=== PATIENT | male | born 1965 | race Hispanic/Latino ===

== ENCOUNTER 2022-02-17 11:02 | Emergency (ER) | payer OTHER ==
[~2022-02-17] VITALS: Ht 170.2 cm; Wt 113.4 kg
[2022-02-17] MEDS ORDERED: 0.9%NACL 1000ML 1,000 ML IV ONE (11:30)
[2022-02-17] MEDS ORDERED: FAMOTIDINE 20MG VIAL IV ONE (11:30)
[2022-02-17] MEDS ORDERED: ONDANSETRON 4MG INJ IVP ONE (11:30)
[2022-02-17] MEDS ORDERED: MECLIZINE HCL 25 MG TABLET PO ONE (11:30)
[2022-02-17 11:38] LABS: BASOPHILS % (AUTO) 0.4 % (0.0-5.0); EOSINOPHILS % (AUTO) 1.3 % (0.0-8.0); HEMATOCRIT 47.3 % (42-54); LYMPHOCYTES % (AUTO) 26.7 % (21.0-51.0); MEAN CORPUSCULAR HGB CONC 33.2 g/dL (32.0-36.0); MEAN CORPUSCULAR VOLUME 87.4 fL (79-99); NEUTROPHILS % (AUTO) 64.5 % (40.0-77.0); PLATELET COUNT (AUTO) 245 K/uL (130-400); RED BLOOD CELL COUNT(AUTO) 5.41 MIL/uL (4.50-6.20); RED CELL DISTRIBUTION WIDTH 13.1 % (11.0-15.5); WHITE BLOOD COUNT (AUTO) 7.2 K/uL (4.8-10.8)
[2022-02-17 11:53] LABS: TOTAL PROTEIN, SERUM 8.3 g/dL (6.0-8.3)
[2022-02-17 14:18] LABS: APPEARANCE,URINE CLEAR (CLEAR); BILIRUBIN,URINE NEGATIVE (NEGATIVE); COLOR,URINE LIGHT-YELLOW (YELLOW); GLUCOSE, URINE (UA) NEGATIVE (NEGATIVE); KETONES,URINE NEGATIVE (NEGATIVE); LEUKOCYTE ESTERASE ,URINE NEGATIVE Leu/uL (NEGATIVE); NITRATE,URINE NEGATIVE (NEGATIVE); OCCULT BLOOD,URINE NEGATIVE (NEGATIVE); PROTEIN,URINE NEGATIVE (NEGATIVE); UROBILINOGEN,URINE 0.2 mg/dL (0.2-1.0)
[2022-02-17 14:24] LABS: AMPHET/METH SCREEN,URINE NEGATIVE (NEGATIVE); BARBITURATE SCREEN, URINE NEGATIVE (NEGATIVE); BENZODIAZEPINES SCREEN,URINE NEGATIVE (NEGATIVE); CANNABINOID SCREEN,URINE NEGATIVE (NEGATIVE); COCAINE SCREEN,URINE NEGATIVE (NEGATIVE); OPIATE SCREEN,URINE NEGATIVE (NEGATIVE); PHENCYCLIDINE SCREEN,URINE NEGATIVE (NEGATIVE)
[2022-02-17] MEDS ORDERED: AMOX1TAB16 PO (14:35)
[2022-02-17] MEDS ORDERED: ONDA4TAB10 PO (14:35)
[2022-02-17] MEDS ORDERED: MECL-226 PO (14:35)
[2022-02-17 14:41] VITALS: BP 132/78
== END 2022-02-17 14:56 | disposition home or self-care (01) ==
LOC: EDH 11:02
DX: H70.92 Unspecified mastoiditis, left ear (principal); R42 Dizziness and giddiness; E78.00 Pure hypercholesterolemia, unspecified; I10 Essential (primary) hypertension; Z20.822 Contact with and (suspected) exposure to COVID-19
CPT/HCPCS: 99285; 96374; 70450; 71045; 87635; 96361; 96375; 84484; 80053; 80305; 85025; 87804 ×2; 36415; 93005; 81003; C9803; J3490; J7030; J2405

== ENCOUNTER 2024-11-30 23:01 | Emergency (ER) | payer OTHER ==
[~2024-11-30] VITALS: Ht 167.6 cm; Wt 117.9 kg
[~2024-11-30 23:01] MED LIST: AMOX1TAB16 PO; MECL-226 PO; ONDA-243 PO
--- NOTE | 2024-11-30 23:38 | NUR ---
PT REMINDED THAT URINE SAMPLE IS NEEDED.
[2024-11-30 23:46] LABS: IMMATURE GRANULOCYTE ABSOLUTE 0.02 K/uL (0-1); NUCLEATED RED BLOOD CELLS 0.0 % (0.0-0.19); PLATELET COUNT (AUTO) 227 K/uL (130-400); RED BLOOD CELL COUNT(AUTO) 4.77 MIL/uL (4.50-6.20); RED CELL DISTRIBUTION WIDTH 13.0 % (11.0-15.5); WHITE BLOOD COUNT (AUTO) 7.1 K/uL (4.8-10.8)
[2024-11-30 23:53] LABS: CREATININE 1.0 mg/dL (0.5-1.3); GLOMERULAR FILTR. RATE CALC 87.0 mL/min (>90); GLUCOSE,RANDOM 134.0 mg/dL (70-105); SODIUM SERUM 142.0 mmol/L (136-145); UREA NITROGEN, BLOOD 22.0 mg/dL (7-18)
--- NOTE | 2024-12-01 01:18 | ERN ---
General Chief Complaint: Back Pain-No Injury Stated Complaint: C/O LOWER BACK PAIN TO LEFT SIDE Time Seen by MD: 23:10 Time Seen by Midlevel: 23:10 Source: patient History of Present Illness Initial Comments 51-year-old male with a past medical history of hyperlipidemia, hypertension, and kidney stones presents to the emergency department for evaluation of left lower back pain that started earlier today. Pain worsens with certain movements. The patient is unsure if this is musculoskeletal in nature or if he is having another kidney stone. Denies any dysuria, hematuria, fever, or any other symptoms at this time. Allergies: Coded Allergies: No Known Allergies (Unverified Allergy, Unknown, 02/17/22) Home Meds Active Scripts Meclizine HCl (Meclizine HCl) 12.5 Mg Tablet, 25 MG PO TID PRN for DIZZINESS, #10 TAB [facility] 02/17/22 Ondansetron (Ondansetron Odt) 4 Mg Tab.rapdis, 4 MG PO TID PRN for NAUSEA/VOMITING, #10 TAB Prov:[facility] 02/17/22 Amoxicillin/Potassium Clav (Amox Tr-K Clv 875-125 mg Tab) 1 Each Tablet, 1 EACH PO BID, #14 TAB Prov:[facility] 02/17/22 Past Medical History Past Medical History: High Cholesterol, Hypertension, Kidney Stone Past Surgical History: None ROS Dictation CONSTITUTIONAL: Negative except for HPI HEAD/FACE: Negative except for HPI EENT: Negative except for HPI RESPIRATORY: Negative except for HPI GASTROINTESTINAL/ABDOMINAL: Negative except for HPI GENITOURINARY: Negative except for HPI MUSCULOSKELETAL: Negative except for HPI INTEGUMENTARY: Negative except for HPI NEUROLOGICAL/PSYCH: Negative except for HPI HEMATOLOGIC/LYMPHATIC: Negative except for HPI All Systems Negative, Except as noted above. 13 point review of systems assessed and all negative except for above. Physical Exam Physical Exam Dictation Vital Signs reviewed General Appearance: Alert, oriented x 3, no acute distress, well developed, nourished. Head and Face: non-traumatic. Eyes: PERRL, pink conjunctivas, eyelid no trauma, anterior chamber with arcus senilis. Ears: Pinnas intact and no signs of trauma or erythema ear canals clear and no discharge TM no erythema Nose: No discharge, no bleeding. Oropharynx: Mouth normal, tongue pink, pharynx clear,no erythema, tonsils no exudates, no abscesses noted, mucous membrane moist Neck: Supple, non-tender, no thyromegaly, no masses, no JVD, no bruits Breast:Deferred Chest:No tenderness, no crepitus, no paradoxical movement, no retractions Lungs:Clear, well-ventilated, symmetric, no rales, no wheezing, no rhonchi, no stridor, good breath sounds bilaterally Heart: Regular rate, regular rhythm, no murmur, no gallops Vascular: no peripheral edema, Abdomen: Soft, positive bowel sounds, nondistended, no guarding, nontender, no rebound, no masses no hepatomegaly, no splenomegaly, no Farr's sign, no hernias. Rectal: Deferred Genital: Deferred Neurological: Normal speech, motor function intact, sensory function intact Musculoskeletal: Neck nontender, full range of motion, b paraspinal muscle tenderness to the left lumbar region, full range of motion, Extremities: nontender, full range of motion Skin: Color pink, dry, no turgor, no rash, no lacerations, no abrasions, no contusions. Lymphatic: Deferred Results Laboratory and Microbiology Lab and Micro Result Laboratory Tests Test 11/30/24 23:32 White Blood Count 7.1 K/uL (4.8-10.8) Red Blood Count 4.77 MIL/uL (4.50-6.20) Hemoglobin 14.5 g/dL (14.0-18.0) Hematocrit 43.3 % (42-54) Mean Corpuscular Volume 90.8 fL (79-99) Mean Corpuscular Hemoglobin 30.4 pg (27.0-33.0) Mean Corpuscular Hemoglobin Concent 33.5 g/dL (32.0-36.0) Red Cell Distribution Width 13.0 % (11.0-15.5) Platelet Count 227 K/uL (130-400) Mean Platelet Volume 9.7 fL (7.5-10.5) Immature Granulocyte % (Auto) 0.3 % (0-1) Neutrophils (%) (Auto) 54.5 % (40.0-77.0) Lymphocytes (%) (Auto) 28.6 % (21.0-51.0) Monocytes (%) (Auto) 10.7 % (3.0-13.0) Eosinophils (%) (Auto) 5.2 % (0.0-8.0) Basophils (%) (Auto) 0.7 % (0.0-5.0) Neutrophils # (Auto) 3.9 K/uL (1.8-7.7) Lymphocytes # (Auto) 2.0 K/uL (1.0-4.8) Monocytes # (Auto) 0.8 K/uL (0.1-1.0) Eosinophils # (Auto) 0.37 K/uL (0.00-0.70) Basophils # (Auto) 0.05 K/uL (0.00-0.20) Absolute Immature Granulocyte (auto 0.02 K/uL (0-1) Nucleated Red Blood Cells 0.0 % (0.0-0.19) Sodium Level 142 mmol/L (136-145) Potassium Level 4.0 mmol/L (3.5-5.1) Chloride Level 102 mmol/L (101-111) Carbon Dioxide Level 27 mmol/L (21-32) Blood Urea Nitrogen 22 mg/dL (7-18) H Creatinine 1.0 mg/dL (0.5-1.3) Glomerular Filtration Rate Calc 87 mL/min (>90) Random Glucose 134 mg/dL (70-105) H Total Calcium 8.6 mg/dL (8.5-10.1) Labs Reviewed?: Yes MDM MDM: 51-year-old male presents to the ER with a acute left lower back pain. Patient denies any direct injury. He does report having a history of multiple bulging discs. His left lower back pain started several days ago but progressively worsened today. He specifically denies any weakness, numbness to bilateral lower extremities. Denies any urinary/bowel incontinence. Denies any dysuria, hematuria, fever, chills, or any other symptoms at this time. His pain feels similar to the previous times he has been diagnosed with a ureter stone. On physical examination the patient has reproducible pain to his left lumbar region. Negative straight leg test. Neurological examination is unremarkable. CBC shows no leukocytosis, no anemia, no thrombocytopenia. Chemistries are stable. CT scan of the abdomen/pelvis does not reveal any evidence of a ureter stone. Patient was given Toradol in the ER and does report feeling better. He states his pain is only reproducible with movement. Pain is most likely musculoskeletal in nature. We will discharged home with supportive management. Differential diagnosis: Ureter stone, back sprain, sciatica There are no social concerns with this patient. Prescription drug management Prescriptions will include: Toradol Medical management and examination interpretation discussions were had by me with other qualified healthcare professionals as indicated for the patient's care. ED Course Orders Procedure Category Date Status Time Cbc With Differential LAB 11/30/24 Complete 23: Basic Metabolic Panel LAB 11/30/24 Complete 23: Urinalysis Profile LAB 11/30/24 Logged 23: Ct Abdomen/Pelvis W/O CT 11/30/24 Resulted Contrast 23: Ketorolac PHA 12/01/24 Complete Tromethamine 15mg/Ml 00:00 Current Medications Medications (Trade) Dose Ordered Sig/Danielito Route PRN Reason Start Time Stop Time Status Last Admin Dose Admin Ketorolac Tromethamine (toRADol) 15 mg ONCE ONCE IV 12/01/24 00:00 12/01/24 00:01 DC 11/30/24 23:53 Vital Signs Date Time Temp Pulse Resp B/P (MAP) Pulse Ox O2 Delivery O2 Flow Rate FiO2 11/30/24 23:38 98.1 88 18 141/76 93 Room Air* 0 21 11/30/24 23:03 98.1 95 20 173/92 96 Room Air DX & DISP Disposition: Discharge Departure Impression: Primary Impression: Acute lumbosacral myofascial strain Condition: Stable Scripts Cyclobenzaprine HCl (Flexeril) 10 Mg Tab 10 MG PO BID for muscle sstiffness for 7 Days, #14 TAB 0 Refills Prov: JENN GARCIA PAC 12/01/24 Ketorolac Tromethamine (Ketorolac Tromethamine) 10 Mg Tablet 1 TAB PO BID for pain for 5 Days, #10 TAB 0 Refills Prov: JENN GARCIA PAC 12/01/24 Additional Instructions: Your blood work today is unremarkable. Your CT scan does not show any evidence of a kidney stone. If your symptoms persist you may need further workup. I have given you a prescription for Toradol and Flexeril. Referrals: MERLIN GARCIA (PCP) Time of Disposition: 02:11 I have reviewed the case, and I agree with, Diagnosis and Plan I performed the substantive portion of the visit. I have reviewed and personally made and approve the management plan that is documented in the note by myself or the YOEL. I acknowledge for responsibility for the patient's management plan. JENN GARCIA PAC Dec 01, 2024 01:18
--- NOTE | 2024-12-01 01:25 | HMCIMG ---
EXAM: CT Abdomen and Pelvis without IV contrast CLINICAL HISTORY: Left lower back pain. TECHNIQUE: Thin collimated axial CT images of the abdomen and pelvis were obtained with sagittal and coronal reformatted images also submitted. CT scan is done according to ALARA (As Low As Reasonably Achievable). CONTRAST: None. COMPARISON: None. FINDINGS: Unremarkable visualized lung parenchyma. No focal abnormality within the gallbladder, pancreas, spleen, adrenals, or kidneys. Mild diffuse fatty infiltration of the liver. There is no obvious bowel wall thickening. Bowel loops are normal in caliber without evidence of obstruction or ileus. The appendix is normal. A component of mild constipation is present in the colon. Mild mesenteric panniculitis. There is no abnormality within the urinary bladder. Mild prostatomegaly. No lymphadenopathy. No free fluid. There is no acute osseous abnormality. Multilevel thoracolumbar spondylosis. IMPRESSIONS: No acute process in the abdomen or pelvis. Mild mesenteric panniculitis. Mild prostatomegaly. /Dina
[2024-12-01] MEDS ORDERED: KETO10TA2 PO (02:12)
[2024-12-01] MEDS ORDERED: CYCL10TA16 PO (02:16)
[2024-12-01] MEDS: ORPHENADRINE 60MG/2ML IVP ONE (03:15)
[2024-12-01 03:28] VITALS: BP 115/70; PULSE 75; RESP 18; TEMP 98.2; O2SAT 98
== END 2024-12-01 03:30 | disposition home or self-care (01) ==
LOC: EDH 23:01
DX: S39.012A Strain of muscle, fascia and tendon of lower back, initial encounter (principal); I10 Essential (primary) hypertension; E78.00 Pure hypercholesterolemia, unspecified; Z87.442 Personal history of urinary calculi; X58.XXXA Exposure to other specified factors, initial encounter; Y93.89 Activity, other specified; Y92.89 Other specified places as the place of occurrence of the external cause; Y99.8 Other external cause status
CPT/HCPCS: 99285; 74176; 96374; 80048; 85025; 36415; 96375; 96376; J1885 ×2; J2360